=== PATIENT | male | born 1955 | race Caucasian/White ===

== ENCOUNTER 2017-10-20 15:20 | Outpatient (CLI) | payer OTHER | END 2017-10-20 15:21 | disposition home or self-care (01) | LOC: BICULT 15:20 | PROVIDERS: ATTEND Urology | DX: N20.0 Calculus of kidney (principal); N28.1 Cyst of kidney, acquired | CPT/HCPCS: 74018; 76770 ==

== ENCOUNTER 2018-04-24 15:37 | Outpatient (CLI) | payer MEDICARE ==
[2018-04-24 17:19] LABS: #Eosinphils 0.1 thou/uL (0.0-0.7); #Lymphocytes 1.8 thou/uL (1.20-3.40); #Monocytes 0.5 thou/uL (0.11-0.59); #Neutrophils 4.6 thou/uL (1.40-6.50); %Basophils 0.6 % (0.0-1.0); %Eosinophils 1.7 % (0.0-10.0); %Lymphocytes 25.3 % (21.0-51.0); %Monocytes 7.7 % (0.0-10.0); %Neutrophils 64.7 % (42.0-75.0); Hemoglobin 16.1 g/dL (14.0-18.0); Mean Corpuscular HGB CONC 36.2 g/dL (32.0-36.0); Mean Corpuscular Hemoglobin 34.5 pg (27.0-31.0); Mean Corpuscular Volume 95.2 fL (78.0-98.0); Mean Platelet Volume 7.6 fL (7.4-10.4); Platelet Count 206 thou/uL (130-400); RBC Distribution Width 11.5 % (11.5-14.5); Red Blood Cell (RBC) Count 4.67 mill/uL (4.70-6.10); White Blood Cell (WBC) Count 7.1 thou/uL (4.8-10.8)
[2018-04-24 17:41] LABS: ALT (SGPT) 29 U/L (8-55); AST (SGOT) 20 U/L (5-34); Albumin 4.4 g/dL (3.4-4.8); Alkaline Phosphatase 107 U/L (40-150); Anion Gap 13 mmol/L (10-20); BUN (Urea Nitrogen) 12 mg/dL (8.4-25.7); Bilirubin, Total 0.7 mg/dL (0.2-1.2); Calc. Creatinine Clearance 0 mL/min (70-130); Calcium 9.6 mg/dL (7.8-10.44); Carbon Dioxide 24 mmol/L (23-31); Chloride 105 mmol/L (98-107); Estimated GFR-MDRD 90; Globulin 2.7 g/dL (2.4-3.5); Glucose 92 mg/dL (80-115); Potassium 3.7 mmol/L (3.5-5.1); Protein, Total 7.1 g/dL (5.8-8.1); Sodium 138 mmol/L (136-145)
== END 2018-04-24 15:38 | disposition home or self-care (01) ==
LOC: LABBT 15:37
PROVIDERS: ATTEND Surgery
DX: Z01.818 Encounter for other preprocedural examination (principal); K40.90 Unilateral inguinal hernia, without obstruction or gangrene, not specified as recurrent
CPT/HCPCS: 80053; 85025; 93005; 93010

== ENCOUNTER 2018-05-02 09:58 | Day surgery (SDC) | payer MEDICARE ==
[2018-04-24 15:57] VITALS: BMI 27.5
[2018-05-02] MEDS ORDERED: CEFAZOLIN 2 GM/50 ML BAG ONE (10:25)
[2018-05-02] MEDS ORDERED: Bupivacaine/Epinephrine 0.25% 30 ML VIAL ONE (11:41)
[2018-05-02] MEDS ORDERED: Fentanyl 100 MCG/2 ML VIAL ONE (11:50)
[2018-05-02] MEDS ORDERED: HYDROmorphone 2 MG/ML VIAL ONE (11:50)
--- NOTE | 2018-05-02 13:33 | OP ---
DATE OF PROCEDURE: 05/02/2018 PREOPERATIVE DIAGNOSIS: Right inguinal hernia. PROCEDURE PERFORMED: Right inguinal hernia repair with mesh. INDICATIONS: A 63-year-old male, who has a painful right inguinal hernia. FINDINGS: Right direct inguinal hernia. PROCEDURE IN DETAIL: After informed consent was obtained, the patient was taken to the operating room and given general endotracheal anesthesia, placed in supine position. His right groin was prepped and draped in usual fashion. Local anesthesia was infiltrated subcutaneously and deep. A transverse right inguinal incision was performed. Subcu divided sharply. The fascia of the external oblique was incised in direction of its fibers through the external ring. Spermatic cord isolated with a Joi drain. Cremasteric fibers . There was a direct inguinal hernia . This was circumscribed and reduced. Reduction was maintained utilizing a PHS hernia system placed in the preperitoneal space medially. It was sutured to the pubic tubercle with a 2-0 Prolene suture. Laterally, tucked under the external oblique fascia. The cord placed anatomic. Hemostasis assured. The external oblique fascia was closed with a running 3-0 Vicryl. Jacques was closed with interrupted 3-0 Vicryl and skin closed with a running subcuticular 4-0 Rapide. Steri-Strips applied. Sterile bandage applied. The patient tolerated the procedure well and transferred to Recovery in good condition. Sponge and needle count verified correct x2. Job ID: [id number]
[2018-05-02] MEDS ORDERED: HYDROcodone/Acetaminophen 5/325 mg Tablet ONE (15:41)
== END 2018-05-02 16:20 | disposition home or self-care (01) ==
LOC: SDC 09:58
PROVIDERS: ATTEND Surgery
PROC: 0YQ50ZZ Repair Right Inguinal Region, Open Approach (ICD-10-PCS; principal; 2018-05-02)
DX: K40.90 Unilateral inguinal hernia, without obstruction or gangrene, not specified as recurrent (principal); J30.9 Allergic rhinitis, unspecified; F41.9 Anxiety disorder, unspecified; K21.9 Gastro-esophageal reflux disease without esophagitis; E78.5 Hyperlipidemia, unspecified; Z79.51 Long term (current) use of inhaled steroids; Z79.899 Other long term (current) drug therapy
CPT/HCPCS: C1781; J1170; J3010

== ENCOUNTER 2019-04-03 08:57 | Outpatient (CLI) | payer MEDICARE ==
--- NOTE | 2019-04-03 09:39 | RAD ---
Exam: 1 view abdomen COMPARISON: 11/09/2016 HISTORY: Renal calculi FINDINGS: Nonspecific bowel gas pattern No suspicious densities in the abdomen or pelvis. Left hemipelvis phleboliths are noted No suspicious densities projecting over the course of the ureters or right renal silhouette. 4 mm den sity projects over the lateral left renal silhouette. No acute osseous abnormalities IMPRESSION: No radiographic evidence of ureterolithiasis. 4 mm calcified projects over the left renal silhouette.
== END 2019-04-03 08:58 | disposition home or self-care (01) ==
LOC: BICRAD 08:57
PROVIDERS: ATTEND Urology
DX: N20.0 Calculus of kidney (principal); N28.1 Cyst of kidney, acquired
CPT/HCPCS: 74018; 80048; 81001; 87086; G0103; 36415

== ENCOUNTER 2021-02-12 13:47 | Outpatient (CLI) | payer MEDICARE | END 2021-02-12 13:48 | disposition home or self-care (01) | LOC: BICRAD 13:47 | PROVIDERS: ATTEND Urology | DX: N20.0 Calculus of kidney (principal) | CPT/HCPCS: 36415; 74018; 81001; G0103 ==

== ENCOUNTER 2021-06-12 13:29 | Outpatient (CLI) | payer MEDICARE | END 2021-06-12 13:30 | disposition home or self-care (01) | LOC: CTENTCT 13:29 | PROVIDERS: ATTEND Specialist | DX: J32.9 Chronic sinusitis, unspecified (principal) | CPT/HCPCS: 70486 ==

== ENCOUNTER 2021-07-16 14:15 | Outpatient (CLI) | payer MEDICARE | END 2021-07-16 14:16 | disposition home or self-care (01) | LOC: RAD 14:15 | PROVIDERS: ATTEND Family Medicine | DX: M25.512 Pain in left shoulder (principal); M19.012 Primary osteoarthritis, left shoulder ==

== ENCOUNTER 2022-05-05 08:29 | Outpatient (CLI) | payer MEDICARE | END 2022-05-05 08:30 | disposition home or self-care (01) | LOC: RAD 08:29 | PROVIDERS: ATTEND Internal Medicine Gastroenterology | DX: R13.19 Other dysphagia (principal); K44.9 Diaphragmatic hernia without obstruction or gangrene | CPT/HCPCS: 74220 ==

== ENCOUNTER 2023-01-23 08:31 | Emergency (ER) | payer MEDICARE ==
[2023-01-23 09:07] LABS: #Monocytes 1.1 thou/uL (0.11-0.59); #Neutrophils 9.3 thou/uL (1.40-6.50); %Basophils 0.4 % (0.0-1.0); %Eosinophils 0.2 % (0.0-10.0); %Lymphocytes 8.1 % (21.0-51.0); %Monocytes 9.7 % (0.0-10.0); %Neutrophils 81.2 % (42.0-75.0); Hematocrit 39.8 % (42.0-52.0); Hemoglobin 14.4 g/dL (14.0-18.0); Mean Corpuscular HGB CONC 36.2 g/dL (32.0-36.0); Mean Corpuscular Hemoglobin 34.8 pg (27.0-31.0); Mean Corpuscular Volume 96.1 fl (78.0-98.0); Mean Platelet Volume 9.9 fL (7.4-10.4); Platelet Count 165 10x3/uL (130-400); RBC Distribution Width 12.4 % (11.5-14.5); Red Blood Cell (RBC) Count 4.14 mill/uL (4.70-6.10); White Blood Cell (WBC) Count 11.4 10x3/uL (4.8-10.8)
[2023-01-23 09:18] LABS: Bilirubin Small (Negative); Blood, Urine Large (Negative); Glucose, Urine (Dipstick) Negative (Negative); Ketone, Urine 15 mg/dL (Negative); Leukocyte Moderate (Negative); Nitrite Positive (Negative); Protein, Urine (Dipstick) > or equal to 300 mg/dL (Neg-Trace); pH, Urine 6.5 (5.0-9.0)
[2023-01-23 09:24] LABS: Clarity Opaque (Clear)
[2023-01-23 09:33] LABS: ALT (SGPT) 30 U/L (8-55); AST (SGOT) 25 U/L (5-34); Alkaline Phosphatase 104 U/L (40-110); Anion Gap 13 mmol/L (10-20); BUN (Urea Nitrogen) 13 mg/dL (8.4-25.7); Bilirubin, Total 1.2 mg/dL (0.2-1.2); Calc. Creatinine Clearance 0 mL/min (70-130); Calcium 9.3 mg/dL (7.8-10.44); Carbon Dioxide 23 mmol/L (23-31); Chloride 97 mmol/L (98-107); Estimated GFR 87; Globulin 2.7 g/dL (2.4-3.5); Glucose 139 mg/dL (80-115); Lipase Less than 4 U/L (8-78); Protein, Total 6.7 g/dL (5.8-8.1); Sodium 129 mmol/L (136-145)
[2023-01-23 09:34] LABS: RBC/HPF Greater than 50 HPF (0-3)
[2023-01-23 09:35] LABS: CAUTI Indications for Culture Acute Hematuria; Squamous Epithelial 0-3 HPF (0-3); Transitional Epithelial 0-3 HPF (None Seen); WBC/HPF Greater than 50 HPF (0-3)
[2023-01-23 09:36] LABS: Bacteria/HPF 2+ HPF (None Seen)
[2023-01-23 09:38] LABS: Urine Culture Reflex Yes Yes
[2023-01-23] MEDS ORDERED: Morphine 4 MG/ML VIAL ONE ×2 (09:39→12:05)
[2023-01-23] MEDS ORDERED: Ondansetron PF 4 MG/2 ML Vial ONE (09:40)
[2023-01-23] MEDS ORDERED: cefTRIAXone (ROCEPHIN) 2 GM VIAL ONE (11:41)
[2023-01-23] MEDS ORDERED: Ketorolac Tromethamine 30 MG/ML VIAL ONE (12:17)
== END 2023-01-23 12:25 | disposition home or self-care (01) ==
LOC: ERS 08:31
DX: N39.0 Urinary tract infection, site not specified (principal); E87.1 Hypo-osmolality and hyponatremia; I10 Essential (primary) hypertension; E78.5 Hyperlipidemia, unspecified; Z79.899 Other long term (current) drug therapy
CPT/HCPCS: 36415; 74176; 80053; 81001; 83605; 83690; 85025; 87077; 87086; 87186; 96361; 96365; 96375; 96376; J0696; J1885; J2270; J2405

== ENCOUNTER 2023-04-19 16:59 | Emergency (ER) | payer MEDICARE ==
[2023-04-19] MEDS ORDERED: Acetaminophen 500 MG TAB ONE (18:11)
[2023-04-19] MEDS ORDERED: Boostrix 0.5 ML (Tdap) VIAL (>/=7 yrs of age) ONE (18:12)
== END 2023-04-19 18:10 | disposition home or self-care (01) ==
LOC: ERS 16:59
DX: S06.0X0A Concussion without loss of consciousness, initial encounter (principal); S00.03XA Contusion of scalp, initial encounter; Z23 Encounter for immunization; I10 Essential (primary) hypertension; E78.5 Hyperlipidemia, unspecified; Z79.899 Other long term (current) drug therapy; W22.8XXA Striking against or struck by other objects, initial encounter
CPT/HCPCS: 70450; 72125; 90471; 90715

== ENCOUNTER 2023-04-28 08:48 | Outpatient (CLI) | payer MEDICARE | END 2023-04-28 08:49 | disposition home or self-care (01) | LOC: MRI 08:48 | PROVIDERS: ATTEND Psychiatry & Neurology Neurology | DX: R25.1 Tremor, unspecified (principal); R26.81 Unsteadiness on feet; I67.89 Other cerebrovascular disease | CPT/HCPCS: 70553 ==

== ENCOUNTER 2024-04-16 10:00 | Outpatient (CLI) | payer MEDICARE | END 2024-04-16 10:01 | disposition home or self-care (01) | LOC: BICRAD 10:00 | PROVIDERS: ATTEND Family Medicine | DX: R97.20 Elevated prostate specific antigen [PSA] (principal); N40.0 Benign prostatic hyperplasia without lower urinary tract symptoms; N20.0 Calculus of kidney; N28.1 Cyst of kidney, acquired; Z87.898 Personal history of other specified conditions | CPT/HCPCS: 36415; 74018; 80048; 81001; 84153; 87086 ==

== ENCOUNTER 2025-04-09 09:03 | Outpatient (CLI) | payer OTHER | END 2025-04-09 09:04 | disposition home or self-care (01) | LOC: BICRAD 09:03 | PROVIDERS: ATTEND Urology | DX: N20.0 Calculus of kidney (principal) | CPT/HCPCS: 74018 ==

== ENCOUNTER 2025-04-15 11:17 | Outpatient (CLI) | payer MEDICARE | END 2025-04-15 11:18 | disposition home or self-care (01) | LOC: ULT 11:17 | PROVIDERS: ATTEND Urology | DX: N20.0 Calculus of kidney (principal); K76.0 Fatty (change of) liver, not elsewhere classified | CPT/HCPCS: 76770 ==